=== PATIENT | female | born 1965 | race African-American/Black ===

== ENCOUNTER 2017-04-22 11:06 | Emergency (ER) | payer MEDICAID, OTHER ==
[~2017-04-22] VITALS: Ht 167.6 cm; Wt 85.0 kg
[~2017-04-22 11:06] MED LIST: LISI-420 PO
[2017-04-22 11:09] VITALS: BP 196/84
--- NOTE | 2017-04-22 11:22 | NUR ---
PATIENT PRESENTS TO ED WITH slipped and fell x 3 days ago;ambulatory with steady gait;hx of HTNrx OF lisinopril, amlodipine . PT STATES DM RUN IN HER FAMILY BUT SHE DON'T HAVE DIABETES. DENIES N/V/D; SKIN IS PINK/WARM/DRY; AAOX4 WITH EVEN AND STEADY GAIT; LUNGS CLEAR BL; HR EVEN AND REGULAR; PT DENIES ANY FEVER, CP, SOB, OR COUGH AT THIS TIME; PATIENT STATES PAIN OF 4/10 AT THIS TIME;PATIENT POSITIONED FOR COMFORT; HOB ELEVATED; BEDRAILS UP X2; ER MD WILL BE NOTIFIED.
--- NOTE | 2017-04-22 11:23 | NUR ---
RELAYED TO MD RESULT OF URINE DIPSTICK AND
--- NOTE | 2017-04-22 12:15 | NUR ---
Lanette prince in ED - 04/22/17 at 1251 by JOSE PT WENT TO CT SCAN.ACCOMPANIED BY TECH
--- NOTE | 2017-04-22 12:15 | NUR ---
PT WENT TO XRAY;ACCOMPANIED BY TECH.
--- NOTE | 2017-04-22 12:30 | NUR ---
BACK FROM XRAY.
--- NOTE | 2017-04-22 13:28 | NUR ---
PT RESTING ON BED;LEONID LISAE DISTRESS NOTED;WILL CONTINUE TO MONITOR PT.
--- NOTE | 2017-04-22 14:21 | NUR ---
PT ASKING WHAT TIME SHE CAN GO HOME;EXPLAINED TO PT THAT THE DR IS STILL PUTTING THE DISCHARGE PAPERS.A ND PT DEMONSTRATES UNDERSTANDING.
[2017-04-22 14:44] VITALS: BP 147/92
--- NOTE | 2017-04-22 14:44 | NUR ---
Patient discharged with v/s stable. Written and verbal after care instructions given and explained. Patient alert, oriented and verbalized understanding of instructions. Ambulatory with steady gait. All questions addressed prior to discharge. ID band removed. Patient advised to follow up with PMD. Rx of valium given. Patient educated on indication of medication including possible reaction and side effects. Opportunity to ask questions provided and answered.
== END 2017-04-22 14:44 | disposition home or self-care (01) ==
LOC: MED 11:06
DX: S39.012A Strain of muscle, fascia and tendon of lower back, initial encounter (principal); M70.842 Other soft tissue disorders related to use, overuse and pressure, left hand; M70.841 Other soft tissue disorders related to use, overuse and pressure, right hand; I10 Essential (primary) hypertension; F17.200 Nicotine dependence, unspecified, uncomplicated; Z88.8 Allergy status to other drugs, medicaments and biological substances; W17.89XA Other fall from one level to another, initial encounter; Y93.89 Activity, other specified; Y92.89 Other specified places as the place of occurrence of the external cause; Y99.8 Other external cause status
CPT/HCPCS: 72100; 81002; 81025; 99284